=== PATIENT | female | born 1995 | race Caucasian/White ===

== ENCOUNTER → 2020-07-27 | Outpatient (REF) | payer OTHER ==
[2020-07-27 16:20] LABS: HEMOGLOBIN A1c 6.3 %
[2020-07-27 16:30] LABS: FREE T4 1.11 NG/DL (0.76-1.46); THYROID STIMULATING HORMONE 1.15 uIU/ML (0.358-3.740)
== END ==
LOC: M PLALAB 14:14
PROVIDERS: ATTEND Advanced Practice Midwife
DX: O24.319 Unspecified pre-existing diabetes mellitus in pregnancy, unspecified trimester (principal)

== ENCOUNTER → 2020-08-10 | Outpatient (REF) | payer OTHER | LOC: M PLALAB 16:59 | PROVIDERS: ATTEND Obstetrics & Gynecology | DX: Z3A.30 30 weeks gestation of pregnancy (principal) ==

== ENCOUNTER → 2020-08-11 | Outpatient (CLI) | payer OTHER ==
--- NOTE | 2020-08-11 09:17 | REP ---
INDICATION: DIABETES,GROWTH,BPP COMPARISON: None. TECHNIQUE: Transabdominal obstetrical ultrasound with color Doppler evaluation. FINDINGS: Examination demonstrates a single live intrauterine in cephalic presentation. motion is identified by technologist. Placenta is noted posterior and grade 1 without evidence for placenta previa or abruption. Amniotic fluid volume is normal. Cervix measures 3.5 cm in length and appears closed.. Gestational age by LMP 30 weeks 3 days with NOREEN 10/17/2020. Gestational age by current measurements 31 weeks 1 day with NOREEN 10/12/2020. FHR equals 147 beats per minute. BPD: 8.0 cm at 32 weeks 0 days HC: 28.8 cm at 31 weeks 4 days AC: 27.7 cm at 31 weeks 5 days FL: 5.8 cm at 30 weeks 1 day HL: 5.2 cm at 30 weeks 2 days HC/AC: 1.04 Estimated weight 1737 grams (68thpercentile). JCARLOS: 15.7 cm Biophysical profile score: 8/8 Umbilical artery SD ratio: 2.65 (1.93-4.05) IMPRESSION: Single live advanced gestation in cephalic presentation demonstrating appropriate estimated weight. Amniotic fluid volume and biophysical profile score are normal. <Electronically signed by Kyler Bailey > 08/11/20 [id number]
== END ==
LOC: EDUNIT# 08:00 → M WHC 08:03
PROVIDERS: ATTEND Advanced Practice Midwife
DX: O24.313 Unspecified pre-existing diabetes mellitus in pregnancy, third trimester (principal); Z3A.31 31 weeks gestation of pregnancy

== ENCOUNTER → 2020-08-11 | Outpatient (CLI) | payer OTHER ==
[~2020-08-11] MED LIST: ADME100I SC; INSUDET SC; LEVO125T4 PO; METF500T13 PO; PRENTAB53 PO
[2020-08-11 14:34] LABS: ALT/SGPT 24 U/L (12-78); BILIRUBIN,TOTAL 0.2 MG/DL (0.2-1.0); GLOMERULAR FILTRATION RATE > 60.0 (>60); LDH LACTATE DEHYDROGENASE 118 U/L (84-246); URIC ACID 4.2 MG/DL (2.6-6.0)
[2020-08-11 14:58] LABS: CREATININE,RANDOM URINE 71.2 MG/DL; TOTAL PROTEIN,RANDOM URINE 26.6 MG/DL (0.0-12.0)
[2020-08-11 15:54] LABS: HEMATOCRIT 33.3 % (36.0-47.0); HEMOGLOBIN 10.8 g/dl (12.0-15.5); MEAN CORPUSCULAR HEMOGLOBIN 27.8 pg (27.0-33.0); MEAN CORPUSCULAR HGB CONC 32.4 g/dl (32.0-36.5); MEAN CORPUSCULAR VOLUME 85.6 fl (80.0-96.0); PLATELET COUNT, AUTOMATED 311 10^3/uL (150-450); RED BLOOD COUNT 3.89 10^6/uL (4.00-5.40); WHITE BLOOD COUNT 10.1 10^3/uL (4.0-10.0)
== END ==
LOC: M WHC 09:36
PROVIDERS: ATTEND Obstetrics & Gynecology
DX: O24.313 Unspecified pre-existing diabetes mellitus in pregnancy, third trimester (principal); Z3A.30 30 weeks gestation of pregnancy
CPT/HCPCS: 76815; 76818; 82247; 82565; 82570; 83615; 84156; 84450; 84460; 84550; 85027; 86850; 86901; 87340; G0463; J2790

== ENCOUNTER → 2020-08-18 | Outpatient (CLI) | payer OTHER ==
--- NOTE | 2020-08-18 10:19 | REP ---
INDICATION: BPP/GROWTH/DIABETES COMPARISON: None. TECHNIQUE: Transabdominal obstetrical ultrasound with color Doppler evaluation. FINDINGS: Examination demonstrates a single live intrauterine in cephalic presentation. motion is identified by technologist. Placenta is noted posterior and grade 1 without evidence for placenta previa or abruption. Amniotic fluid volume is normal. Cervix measures 3.3 cm in length and appears closed.. Gestational age by LMP and 1st ultrasound 31 weeks 3 days with NOREEN 10/17/2020. FHR equals 128 beats per minute. JCARLOS: 13.3 cm (8.7-24.0) Biophysical profile score: 8/8 Umbilical artery 1 SD ratio: 3.70 (1.87-3.93) Umbilical artery 2 SD ratio: 3.29 (1.87-3.93) IMPRESSION: Single live intrauterine in cephalic presentation. Amniotic fluid index and biophysical profile score normal. <Electronically signed by Kyler Bailey > 08/18/20 [id number]
== END ==
LOC: M WHC 09:33
PROVIDERS: ATTEND Obstetrics & Gynecology
DX: Z36.89 Encounter for other specified antenatal screening (principal); O24.319 Unspecified pre-existing diabetes mellitus in pregnancy, unspecified trimester; Z3A.31 31 weeks gestation of pregnancy

== ENCOUNTER → 2020-08-20 | Outpatient (CLI) | payer OTHER ==
--- NOTE | 2020-08-20 18:03 | REP ---
INDICATION: DIABETES,BPP. COMPARISON: 08/18/2020. TECHNIQUE: Multiple sonographic images of the gravid uterus. FINDINGS: There is a single intrauterine gestation. The technologist did not document position, however, upon review of the images the fetus appears to be in a cephalic presentation. The placenta is posterior with grade 1 maturity. There is no placenta previa. The umbilical cord inserts into the placenta centrally. There is a three-vessel cord. heart rate is 142 beats per minute. Amniotic fluid index is 10.7. Normal is 8.7-24.1. Biophysical profile: breathing 2 tone 2 movement 2 Amniotic fluid volume 2 Total biophysical score: 8/8 Umbilical artery Doppler assessment: Umbilical artery 1: PSV 25.2 centimeters/second EDV 8.5 centimeters/second S/D 2.8 (1.86-3.9 close) RI 0.66 (0.50-0.75) Umbilical artery 2: PSV 25.8 centimeters/second EDV 8.0 centimeters/second S/D 3.23 RI 0.69. IMPRESSION: biophysical profile as discussed above. <Electronically signed by Bijan Lamar > 08/20/20 [id number]
== END ==
LOC: M WHC 09:46
PROVIDERS: ATTEND Obstetrics & Gynecology
DX: O99.213 Obesity complicating pregnancy, third trimester (principal); O24.319 Unspecified pre-existing diabetes mellitus in pregnancy, unspecified trimester

== ENCOUNTER → 2020-08-27 | Outpatient (CLI) | payer OTHER ==
--- NOTE | 2020-08-27 16:12 | REP ---
INDICATION: BPP. Limited study. Biophysical profile. COMPARISON: Comparison study August 20, 2020. TECHNIQUE: Limited transabdominal obstetric sonography. FINDINGS: Scanning through the gravid uterus demonstrates a viable single intrauterine gestation in a cephalic lie. The placenta is posterior grade 2 without evidence of placenta previa. Amniotic fluid is subjectively normal. CJARLOS is normal at 15.5 cm. Biophysical profile score is 8 out of a possible 8. SD ratio in the umbilical cord artery by Doppler is normal at 2.73. Closed cervical length is view transabdominally and measured at 3.8 cm.. IMPRESSION: Limited Ob sonography as above. <Electronically signed by Eugene Cook > 08/27/20 [id number]
== END ==
LOC: M WHC 11:06
PROVIDERS: ATTEND Obstetrics & Gynecology
DX: O24.319 Unspecified pre-existing diabetes mellitus in pregnancy, unspecified trimester (principal); O99.213 Obesity complicating pregnancy, third trimester; Z3A.00 Weeks of gestation of pregnancy not specified

== ENCOUNTER → 2020-09-02 | Outpatient (CLI) | payer OTHER ==
--- NOTE | 2020-09-07 11:01 | REP ---
INDICATION: BPP/GROWTH COMPARISON: 08/27/2020 TECHNIQUE: Transabdominal obstetrical ultrasound with color Doppler evaluation. FINDINGS: Examination demonstrates a single live intrauterine in cephalic presentation. motion is identified by technologist. Placenta is noted posterior and grade 2 without evidence for placenta previa or abruption. Amniotic fluid volume is normal. Cervix measures 3.9 cm in length and appears closed.. Gestational age by LMP and 1st U/S 33 weeks 4 days with NOREEN 10/17/2020. Gestational age by current measurements 34 weeks 0 days with NOREEN 10/14/2020. FHR equals 150 beats per minute. JCARLOS: 14.0 cm Biophysical profile score: 8/8 Estimated weight by current measurements 2496 g (76 percentile) IMPRESSION: Single live intrauterine in cephalic presentation demonstrating appropriate estimated weight. Amniotic fluid index and biophysical profile score are normal. <Electronically signed by Kyler Bailey > 09/07/20 [id number]
== END ==
LOC: M WHC 14:25
PROVIDERS: ATTEND Obstetrics & Gynecology
DX: Z36.2 Encounter for other antenatal screening follow-up (principal); O24.319 Unspecified pre-existing diabetes mellitus in pregnancy, unspecified trimester; Z3A.34 34 weeks gestation of pregnancy

== ENCOUNTER 2020-09-04 13:52 | Outpatient (CLI) | payer OTHER ==
[~2020-09-04] VITALS: Ht 157.5 cm; Wt 114.3 kg
[2020-09-04] MEDS ORDERED: LEVO125T4 PO (14:26)
[2020-09-04] MEDS ORDERED: PRENTAB53 PO (14:26)
[2020-09-04] MEDS ORDERED: ADME100I SC (14:26)
[2020-09-04] MEDS ORDERED: METF500T13 PO (14:26)
[2020-09-04] MEDS ORDERED: INSUDET SC (14:26)
--- NOTE | 2020-09-04 15:32 | IPNPDOC ---
Obstetrical Progress Note Date of Service Sep 04, 2020 Subjective 24yo at 33+6 weeks EGA. Presents for a labor check. Reports vaginal/pelvic/pubic/low back pain discomfort. Patient having difficulty describing location and nature of her discomfort. Denies vulvovaginal lesions/rash. She denies frequent, painful uterine contractions. No loss of fluid or vaginal bleeding. Reports regular, frequent movement. ROS: No COX, visual changes, RUQ pain, sob, cp, n/v/f/c. 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 Cervix closed, no bleeding. SVE: 0-1 cm, 25 %, -3, cephalic, intact, small amount of bloody show; minimal pipe changer several hours. EFM: Cat I / Reactive [place]: contraction pattern not present US,anne: cephalic, normal AFV, MVP 6cm A/P: 24 yo at 33+6 weeks EGA. Latent labor; no evidence of infection, active labor or PPROM. Discomfort may be related to baby's positioning/movement. Reassuring maternal and status. -Routine third trimester precautions given. -Follow up in office as scheduled. Andres Young DO FACOG. JULIO YOUNG DO Sep 04, 2020 15:32
== END 2020-09-04 15:30 | disposition home or self-care (01) ==
LOC: M LDO 13:52
PROVIDERS: ATTEND Obstetrics & Gynecology
DX: O26.893 Other specified pregnancy related conditions, third trimester (principal); R10.2 Pelvic and perineal pain; M54.5 Low back pain; Z3A.33 33 weeks gestation of pregnancy; O24.113 Pre-existing type 2 diabetes mellitus, in pregnancy, third trimester; O14.03 Mild to moderate pre-eclampsia, third trimester; O99.213 Obesity complicating pregnancy, third trimester; E66.9 Obesity, unspecified; O99.283 Endocrine, nutritional and metabolic diseases complicating pregnancy, third trimester; E03.9 Hypothyroidism, unspecified; Z68.42 Body mass index [BMI] 45.0-49.9, adult; Z91.030 Bee allergy status
CPT/HCPCS: 59025; 76815; G0378; G0463

== ENCOUNTER → 2020-09-10 | Outpatient (CLI) | payer OTHER ==
--- NOTE | 2020-09-10 13:57 | REP ---
INDICATION: DIABETES,BPP. COMPARISON: 09/02/2020. TECHNIQUE: Multiple sonographic images of the gravid uterus for growth and biophysical profile. FINDINGS: There is a single intrauterine gestation in a cephalic presentation. The placenta is posterior with grade 2 maturity. No mention of whether not there is a previa is indicated on the work sheet, however, no placenta previa was identified on prior studies. The lower uterine segment is difficult to visualize on the images presented with the study. right heart rate is 139 beats per minute. Amniotic fluid volume is 15.8. Normal is 8.0-24.9. Gestational age by the 1st ultrasound this gestational is 34 weeks 5 days with an NOREEN of 10/17/2020. heart rate is 139 beats per minute. Biophysical profile: Breathing 2 Tone 2 Movement 2 AFV 2 Total 01/09 Umbilical artery Doppler evaluation: Umbilical artery 1: PSV 49.7 cm/S EDV 18.0 cm/S SD 2.76 (1.69-3.62) RA 0.64 (0.46 x 0.72) Umbilical artery 2: PSV 33.1 cm/S EDV 10.7 cm/S SD 3.09 RI 0.68 IMPRESSION: biophysical profile as discussed above. <Electronically signed by Bijan Lamar > 09/10/20 [id number]
== END ==
LOC: M WHC 10:55
PROVIDERS: ATTEND Obstetrics & Gynecology
DX: O24.313 Unspecified pre-existing diabetes mellitus in pregnancy, third trimester (principal); Z3A.34 34 weeks gestation of pregnancy

== ENCOUNTER → 2020-09-13 | Outpatient (REF) | payer OTHER ==
[~2020-09-13] MED LIST changes: +CHLO25TA PO; +IBUP80TA PO; +LABE100T4 PO; +NIFE1TAB51 PO; +OXYC1TAB23 PO
[2020-09-13 18:26] LABS: HEMOGLOBIN 11.1 g/dl (12.0-15.5); MEAN CORPUSCULAR HEMOGLOBIN 26.9 pg (27.0-33.0); MEAN CORPUSCULAR HGB CONC 31.7 g/dl (32.0-36.5); MEAN CORPUSCULAR VOLUME 84.7 fl (80.0-96.0); PLATELET COUNT, AUTOMATED 261 10^3/uL (150-450); RED BLOOD COUNT 4.13 10^6/uL (4.00-5.40)
[2020-09-13 18:47] LABS: ALBUMIN 2.4 GM/DL (3.2-5.2); ALT/SGPT 22 U/L (12-78); BILIRUBIN,TOTAL 0.2 MG/DL (0.2-1.0); BLOOD UREA NITROGEN 11 MG/DL (7-18); CALCIUM LEVEL 9.4 MG/DL (8.5-10.1); CARBON DIOXIDE LEVEL 25 MEQ/L (21-32); CHLORIDE LEVEL 108 MEQ/L (98-107); GLOMERULAR FILTRATION RATE > 60.0 (>60); GLUCOSE, FASTING 80 MG/DL (70-100); POTASSIUM SERUM 4.4 MEQ/L (3.5-5.1); SODIUM LEVEL 141 MEQ/L (136-145); TOTAL PROTEIN 6.3 GM/DL (6.4-8.2)
[2020-09-13 18:49] LABS: CREATININE,RANDOM URINE 81.4 MG/DL; TOTAL PROTEIN,RANDOM URINE 76.1 MG/DL (0.0-12.0)
== END ==
LOC: M PLALAB 14:38
PROVIDERS: ATTEND Obstetrics & Gynecology
DX: Z34.93 Encounter for supervision of normal pregnancy, unspecified, third trimester (principal); Z3A.35 35 weeks gestation of pregnancy
CPT/HCPCS: 36415; 59426; 80053; 82570; 84156; 85027; 87081; 87186; G0463

== ENCOUNTER → 2020-09-17 | Outpatient (CLI) | payer OTHER ==
[~2020-09-17] MED LIST changes: -CHLO25TA PO; -IBUP80TA PO; -LABE100T4 PO; -NIFE1TAB51 PO; -OXYC1TAB23 PO
--- NOTE | 2020-09-17 13:25 | REP ---
INDICATION: BPP/DIABETES. COMPARISON: 09/10/2020 TECHNIQUE: Transabdominal FINDINGS: Multiple ultrasonographic images of the gravid uterus shows a single living intrauterine gestation in the cephalic presentation. Doppler interrogation of the heart shows a heart rate of 149 beats per minute. The subjective amniotic fluid volume is within normal limits. The calculated amniotic fluid index is 11.0 within expected range 7.8-24.9. the placenta is posterior. Doppler interrogation of the umbilical artery shows an AB ratio of 2.92. This is within the normal range. Secondary to the low position of the head inaccurate cervical length measurement could not be obtained. biophysical profile scores 2 for breathing, 2 for tone, 2 for movement, and 2 for amniotic fluid volume giving a sum total of 8/8. IMPRESSION: Limited OB ultrasound as described above. <Electronically signed by Jason Miller > 09/17/20 [id number]
== END ==
LOC: M WHC 12:38
PROVIDERS: ATTEND Obstetrics & Gynecology
DX: O24.313 Unspecified pre-existing diabetes mellitus in pregnancy, third trimester (principal); Z3A.35 35 weeks gestation of pregnancy

== ENCOUNTER 2020-09-21 10:48 | Inpatient (IN) | payer OTHER ==
[2020-09-21] VITALS (40 sets, daily range): BP systolic 94–209; BP diastolic 52–123
[~2020-09-21] VITALS: Ht 157.5 cm; Wt 117.5 kg
[2020-09-21] MEDS ORDERED: NIFEdipine 10 MG CAP PO STA (11:38)
[2020-09-21] MEDS ORDERED: LR 1,000 ML IV SCH ×2 (11:40→18:20)
[2020-09-21] MEDS ORDERED: CALCIUM GLUCONATE 1,000 MG in D5W MINI-BAG PLUS 100 ML IV PRN (11:40)
[2020-09-21] MEDS ORDERED: MAG Sulf (L&D) 4 GM/100 ML 4 GM in IV 1 EA IV ONE (11:40)
[2020-09-21] MEDS ORDERED: MAGNESIUM *L&D* 4GM/100ML BAG (40MG/ML) As Ordered ONE (11:49)
[2020-09-21] MEDS ORDERED: MAGNESIUM SULFATE 4% INJ 20GM/500ML (40MG/ML) As Ordered ONE (11:50)
[2020-09-21] MEDS ORDERED: LABETALOL 100MG/20ML VIAL IV STA ×2 (12:17→22:02)
[2020-09-21 12:25] LABS: HEMATOCRIT 37.9 % (36.0-47.0); HEMOGLOBIN 12.2 g/dl (12.0-15.5); MEAN CORPUSCULAR HEMOGLOBIN 27.4 pg (27.0-33.0); MEAN CORPUSCULAR HGB CONC 32.2 g/dl (32.0-36.5); PLATELET COUNT, AUTOMATED 240 10^3/uL (150-450); RED BLOOD COUNT 4.46 10^6/uL (4.00-5.40); WHITE BLOOD COUNT 10.6 10^3/uL (4.0-10.0)
[2020-09-21] MEDS: MAG Sulf (OBGYN) 20GM/500ML 20,000 MG in IV 1 EA IV SCH ×2 (12:41→23:40)
[2020-09-21 12:47] LABS: ALT/SGPT 29 U/L (12-78); BILIRUBIN,TOTAL 0.2 MG/DL (0.2-1.0); CREATININE FOR GFR 0.58 MG/DL (0.55-1.30); GLOMERULAR FILTRATION RATE > 60.0 (>60); LDH LACTATE DEHYDROGENASE 202 U/L (84-246); URIC ACID 5.1 MG/DL (2.6-6.0)
[2020-09-21 12:53] LABS: CREATININE,RANDOM URINE 52.4 MG/DL; TOTAL PROTEIN,RANDOM URINE 448.7 MG/DL (0.0-12.0)
--- NOTE | 2020-09-21 13:47 | HPEPDOC ---
Obstetrical History & Physical General Date of Admission Sep 21, 2020 at 11:38 History of Present Illness 24-year-old at 36+2 weeks gestation. Presents from the office after exhibiting severe range blood pressures and reporting to be symptomatic with a severe headache. She denies vaginal bleeding, loss of fluid or painful, frequent uterine contractions. She reports regular movement. She denies visual changes, right upper quadrant pain, shortness of breath or chest pain. course: 1. Pregestational diabetic, insulin dependent. Current regimen: AM 24U Admelog , 1000mg Metformin, 80U Levemir. Lunch 24U Admelog. PM 28U Admelog, 1000mg Metformin, 100U Levemir. 2. Pre-eclampsia with severe features. 3. 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 Past Medical History Allergies Coded Allergies: bee venom protein (honey bee) (Verified Adverse Reaction, Severe, "THROAT CLOSES", 09/04/20) Medications Scheduled Levothyroxine Sodium (Levothyroxine Sodium) 125 Mcg Tablet, 125 MCG PO DAILY Metformin HCl (Metformin HCl) 500 Mg Tablet, 1,000 MG PO BID Vit,Calc76/Iron/Folic (Prenatabs Rx Tablet) 1 Each Tablet, 1 TAB PO DAILY Miscellaneous Medications Insulin Detemir (Levemir) 100 Unit/1 Ml Vial, 86 UNITS SC Insulin Detemir (Levemir) 100 Unit/1 Ml Vial, 110 UNITS SC Insulin Lispro (Admelog) 100 Unit/1 Ml Vial, 28 UNIT SC Insulin Lispro (Admelog) 100 Unit/1 Ml Vial, 28 UNIT SC Insulin Lispro (Admelog) 100 Unit/1 Ml Vial, 30 UNIT SC Physical Examination Physical Examination GENERAL: Alert and oriented times three, however, she appears lethargic ABDOMEN: Gravid and non-tender to touch. FETUS: Is vertex (VTX) by sterile vaginal examination (SVE), fetus is vertex (VTX) by Senthil. HEART RATE: Regular rate and rhythm. LUNGS: Clear to auscultation (CTA). EXTREMITIES: No edema. No clonus. SVE: deferred EFM: Cat I [place]: no contractions Vital Signs/I&O Vital Signs Date Time Temp Pulse Resp B/P (MAP) Pulse Ox O2 Delivery O2 Flow Rate FiO2 09/21/20 12:34 98.0 106 18 117/66 (83) 09/21/20 11:10 99 Room Air Laboratory Data 24H LABS Laboratory Tests 2 09/21/20 11:28: Bedside Glucose (Misc Panel) 62L 09/21/20 12:00: Nucleated Red Blood Cells % (auto) 0.2H, Urine Random Creatinine 52.4, Urine Random Total Protein 448.7H, Glomerular Filtration Rate > 60.0, Uric Acid 5.1, Total Bilirubin 0.2, Aspartate Amino Transf (AST/SGOT) 18, Alanine Aminotransferase (ALT/SGPT) 29, Lactate Dehydrogenase 202 09/21/20 12:52: Serology Scanned Report Hepatitis B Testing CBC/BMP Laboratory Tests 09/21/20 12:00 Assessment/Plan Assessment 24yo G1 at 36+2 weeks with pre-eclampsia and severe features; remote from delivery. Comorbidities: IDDM (pregestational), obesity, hypothyroidism. status / antepartum testing reassuring thus far. Plan Admit and orient. Lumber Cutter and consent. Diet: NPO Recommend expediting delivery, offered PLTCS and she has agreed to proceed in this fashion. Anesthesia and NICU notified. Preparations for the OR being made. UJLIO FRITZ DO Sep 21, 2020 13:47
[2020-09-21] MEDS ORDERED: PHENYLephrine 500MCG 5ML (100MCG/ML) SYRINGE As Ordered ONE ×2 (14:40→17:23)
[2020-09-21] MEDS ORDERED: MORPHINE PRES-FREE INJ 10 MG/10 ML VIAL (J2274) As Ordered ONE (14:40)
[2020-09-21] MEDS ORDERED: OXYTOCIN 30 UNITS IN 0.9% NaCl 500ML IV BAG (J2590) As Ordered ONE (14:40)
[2020-09-21] MEDS ORDERED: METOCLOPRAMIDE INJ 10MG/2ML VIAL (J2765 PER 1) As Ordered ONE (14:40)
[2020-09-21] MEDS ORDERED: ePHEDrine SULFATE 25 MG/5 ML(5MG/ML) SYRINGE As Ordered ONE (14:40)
[2020-09-21] MEDS ORDERED: ONDANSETRON 4MG/2ML VIAL As Ordered ONE (14:40)
[2020-09-21] MEDS ORDERED: DEXTROSE 50% 50 ML SYRINGE As Ordered ONE (14:48)
[2020-09-21] MEDS ORDERED: ceFAZolin SOD 3 GM IV Place Holder IV ONE (14:50)
[2020-09-21] MEDS: BICITRA 30ML SOLN UDC PO ONE ×2 (14:51→16:47)
[2020-09-21] MEDS ORDERED: DEXTROSE 50% 50 ML SYRINGE IV STA ×2 (14:56→16:16)
[2020-09-21] MEDS ORDERED: ceFAZolin SOD 2 GM in IV 1 EA IV ONE (15:05)
[2020-09-21] MEDS ORDERED: ceFAZolin SOD 1 GM in D5W MINI-BAG PLUS 50 ML IV ONE (15:05)
[2020-09-21] MEDS ORDERED: D5W/0.9% SODIUM CHLORIDE 1,000 ML IV SCH ×2 (15:50→23:30)
[2020-09-21] MEDS ORDERED: KETOROLAC 60MG 2ML VIAL As Ordered ONE (16:38)
[2020-09-21] MEDS ORDERED: dexameTHASONE 4 MG/ML 1ML VIAL (J1100 PER 1MG) As Ordered ONE (16:38)
[2020-09-21 17:48] LABS: CORD GAS ABE V -4.8; CORD GAS HCO3 V 21.4 MEQ/L; CORD GAS O2 SAT V 62.3 %; CORD GAS PCO2 V 43.8 mmHg; CORD GAS PH V 7.307 UNITS; CORD GAS PO2 V 27.8 mmHg; CORD GAS SBC V 19.7 MEQ/L; CORD GAS TCO2 V 22.8 MEQ/L
[2020-09-21] MEDS ORDERED: SIMETHICONE 80MG CHEW TAB PO PRN (18:20)
[2020-09-21] MEDS ORDERED: PERCOCET 5MG/325MG TAB PO PRN ×2 (18:20)
[2020-09-21] MEDS ORDERED: OXYTOCIN DRIP 30 UNITS in IV 1 EA IV SCH (18:20)
[2020-09-21] MEDS ORDERED: MEASLES,MUMPS,RUBELLA VACCINE INJ (MMR-II) (90707) SC SCH (18:20)
[2020-09-21] MEDS ORDERED: ONDANSETRON 4 MG TAB PO PRN (18:20)
[2020-09-21] MEDS ORDERED: RHOGAM 300 MCG (1500 IU) INJ (J2790) IM SCH (18:20)
[2020-09-21] MEDS ORDERED: ACETAMINOPHEN 500 MG TAB PO PRN (18:20)
[2020-09-21] MEDS ORDERED: DEXTROSE 50% 50 ML SYRINGE IV PRN (18:25)
[2020-09-21] MEDS ORDERED: GLUCAGON INJ 1MG VIAL SC PRN (18:25)
[2020-09-21] MEDS ORDERED: GLUCOSE 4GM CHEW TABLET PO PRN (18:25)
[2020-09-21] MEDS ORDERED: METOCLOPRAMIDE INJ 10MG/2ML VIAL (J2765 PER 1) IV PRN (18:30)
[2020-09-21] MEDS ORDERED: ONDANSETRON 4MG/2ML VIAL IV PRN ×2 (18:30)
[2020-09-21] MEDS ORDERED: oxyCODONE 5MG TAB PO PRN (18:30)
[2020-09-21] MEDS ORDERED: fentaNYL 100 MCG/2 ML INJECTION (J3010) IV PRN (18:30)
[2020-09-21] MEDS ORDERED: HYDROMORPHONE HCL 0.5 MG/ 0.5 ML SYRINGE (J1170 PER 1) IV PRN (18:30)
[2020-09-21] MEDS ORDERED: MEPERIDINE INJ 25 MG/ML VIAL (J2175) IV PRN (18:30)
[2020-09-21] MEDS ORDERED: NALOXONE INJ 0.4MG/1ML VIAL (J2310 PER 1MG) IV PRN ×2 (18:30)
[2020-09-21] MEDS ORDERED: NALBUPHINE HCL 10 MG/ML AMP (J2300) IV PRN ×2 (18:30)
[2020-09-21] MEDS ORDERED: diphenhydrAMINE 50MG/ML VIAL (J1200) IV PRN ×2 (18:30)
--- NOTE | 2020-09-21 18:30 | ROOPDOC ---
[facility] Report Of Operation Report of Operation DATE OF PROCEDURE: 09/21/2020 PREPROCEDURE DIAGNOSES:. 36+2 weeks gestation, preeclampsia was severe features, insulin-dependent diabetes mellitus, obesity, hypothyroidism (remote from delivery) POSTPROCEDURE DIAGNOSES: Same PROCEDURE: Primary low transverse section SURGEON: Spencer Young DO FACOG CENTRAL SUPPLY ASSISTANT: MD Amita FACOG (Essential role in retraction, extraction, and closure of all tissue layers) ANESTHESIA: Spinal ESTIMATED BLOOD LOSS: 500 mL. IV FLUIDS: 300 mL LR URINE OUTPUT: 50 mL COMPLICATIONS: None. PREOPERATIVE ANTIBIOTICS: Ancef 3g IV x 1 COMPLICATIONS: none DATA: Apgars 9 and 9. Birthweight 3100 g, 6 lbs 13 oz. SPECIMENS: none PRIMARY INDICATION FOR : Pre-eclampsia with severe features, remote from delivery DESCRIPTION OF PROCEDURE: The patient was counseled on the risks, benefits, indications and alternatives of the procedure. Informed consent was obtained. She was taken to the operating room with IV running and placed on the operating table in the dorsal supine position with a leftward tilt. Regional anesthesia was found to be adequate. Sequential compression devices were placed on the lower extremities. A Garcia c atheter was placed under sterile conditions. She was prepared and draped in normal sterile fashion. A time out was performed per protocol. Regional anesthesia was again found to be adequate. A Pfannenstiel skin incision was made with the 10 blade. The 10 blade was used to dissect down to the level of the rectus sheath fascia. The rectus sheath pressure was incised midline and this was extended bilaterally with Steiner scissors , and manual stretch. The rectus muscle bellies were dissected off the rectus sheath fascia superiorly and inferiorly using both sharp and blunt dissection. The midline was identified. The peritoneum was identified and entered digitally. The peritoneal opening was extended with manual stretch. The Mobius retractor was placed. The vesicouterine peritoneum was dissected with Metzenbaum scissors to create the bladder flap. A low transverse uterine incision was made with the 10 blade. This was extended with manual stretch. The amniotic sac was punctured, and clear fluid was noted. The baby delivered through the hysterotomy without difficulty. The cord was doubly clamped and cut, and the baby was handed off to awaiting care. data shown above. The placenta was removed manually. The intrauterine cavity was cleared of all clot and debris. The hysterotomy was closed with 0 Vicryl in running locked fashion. This was reinforced with a second imbricating layer using 0 Vicryl in running fashion. Excellent hemostasis of the hysterotomy was noted. The pelvis was irrigated and the fluid suctioned. The Mobius retractor was removed. The peritoneum was closed with 3-0 Vicryl running fashion. The rectus muscle bellies were reapproximated with interrupted stitches using 3-0 Vicryl. The rectus muscles bellies were hemostatic. The rectus sheath fascia was closed with 0 Vicryl running fashion. The subcutaneous layer was irrigated and the fluid suctioned. Small bleeding vessels were cauterized with Bovie. Excellent hemostasis was noted. The subcutaneous layer was reapproximated with 3-0 Vicryl running fashion. Skin was closed with 3-0 Monocryl in subcuticular fashion. An Optifoam bandage was placed over the closed incision. Sponge, needle and instrument counts were correct per protocol throughout the procedure. The patient tolerated the entire procedure very well. She was transferred to the PACU in stable condition. DO EMMIE Hong JONATHAN R. DO Sep 21, 2020 18:30
[2020-09-21] MEDS: DOCUSATE SODIUM 100MG CAPSULE PO SCH (21:00)
[2020-09-21] MEDS: LABETALOL 200 MG TAB PO SCH (21:14)
[2020-09-21] MEDS: KETOROLAC 30 MG/ML 1ML VIAL IV SCH (23:40)
[2020-09-22] VITALS (24 sets, daily range): BP systolic 111–157; BP diastolic 55–92
[2020-09-22] MEDS: KETOROLAC 30 MG/ML 1ML VIAL IV SCH ×2 (06:07→12:00)
[2020-09-22] MEDS: HumaLOG INSULIN (NovoLOG) PER UNIT SC SCH ×5 (07:04→20:30)
--- NOTE | 2020-09-22 07:07 | IPNPDOC ---
Progress Note Date of Service: Sep 22, 2020 Day#: 1 Progress Note POD#1 S/p PLTCS. Pre-e w/ severe features, remote from delivery. Receiving mag sulfate. Glycemic control with insulin sliding scale. Antihypertensive: Labetalol 200mg BID. Received Labetalol 20mg IV x 1 since delivery. SUBJECT: Pain well controlled. Tolerating small amounts of PO. Garcia in place. Vaginal bleeding , Lochia decreasing/minimal. Pain is well-controlled. Incision bandage is clean/unsaturated. Denies headache, visual changes, right upper quadrant pain, shortness of breath or chest pain. OBJECTIVE: VITAL SIGNS: Predominantly normotensive this AM/intermittent HTN, afebrile. Alert and oriented times three. H: RRR L: CTA B Abdomen: Fundus firm at U-2. Soft, NTTP. Incision bandage not soaked through See [email or web address] for FSG. ASSESSMENT: Status post uncomplicated PLTCS. Vitals within normal limits, afebrile, hemodynamically stable with no evidence of infection. PLAN: Continue Mag sulfate until at least 24 hours . Continue labetalol and ssi Restart Levothyroxine Coordinate with incising machine operator or med consult to decide on insulin regimen. Routine /postoperative advancement Andres Fritz DO VS, I&O, 24H, Shellie Vital Signs/I&O Vital Signs Date Time Temp Pulse Resp B/P (MAP) Pulse Ox O2 Delivery O2 Flow Rate FiO2 09/22/20 05:02 97 18 115/55 (75) 09/22/20 00:59 98.4 09/21/20 20:42 98 Room Air I&O- Last 24 Hours up to 6 AM 09/22/20 06:00 Intake Total 2743 ml Output Total 3665 ml Balance -922 ml Laboratory Data 24H LABS Laboratory Tests 2 09/21/20 11:28: Bedside Glucose (Misc Panel) 62L 09/21/20 12:00: Nucleated Red Blood Cells % (auto) 0.2H, Urine Random Creatinine 52.4, Urine Random Total Protein 448.7H, Glomerular Filtration Rate > 60.0, Uric Acid 5.1, Total Bilirubin 0.2, Aspartate Amino Transf (AST/SGOT) 18, Alanine Aminotransferase (ALT/SGPT) 29, Lactate Dehydrogenase 202, Syphilis Serology NONREACTIVE 09/21/20 12:52: Serology Scanned Report Hepatitis B Testing 09/21/20 14:47: Bedside Glucose (Misc Panel) 29*L 09/21/20 14:54: Bedside Glucose (Misc Panel) 182H 09/21/20 15:17: Bedside Glucose (Misc Panel) 84 09/21/20 15:44: Bedside Glucose (Misc Panel) 66L 09/21/20 16:11: Bedside Glucose (Misc Panel) 52L 09/21/20 16:44: Bedside Glucose (Misc Panel) 132H 09/21/20 17:17: Bedside Glucose (Misc Panel) 121H 09/21/20 17:37: Cord Venous Blood pH 7.307, Cord Venous Blood PCO2 43.8, Cord Venous Blood PO2 27.8, Cord Venous Blood HCO3 21.4, Cord Venous Blood Total CO2 22.8, Cord Venous Base Excess (Actual) -4.8, Cord Venous Base Excess (Standard) 19.7, Cord Venous Blood Oxygen Saturation 62.3 09/21/20 18:14: Bedside Glucose (Misc Panel) 96 09/21/20 22:17: Bedside Glucose (Misc Panel) 48L 09/21/20 22:42: Bedside Glucose (Misc Panel) 58L 09/21/20 23:07: Bedside Glucose (Misc Panel) 62L 09/22/20 02:38: Bedside Glucose (Misc Panel) 77 09/22/20 06:11: Bedside Glucose (Misc Panel) 172H CBC/BMP Laboratory Tests 09/21/20 12:00 JULIO FRITZ DO Sep 22, 2020 07:07
[2020-09-22] MEDS: NS 1,000 ML IV SCH ×2 (07:10→18:33)
[2020-09-22] MEDS: PRENATAL VITAMINS CHEWABLE TABLET PO SCH (08:46)
[2020-09-22] MEDS: LABETALOL 200 MG TAB PO SCH ×2 (08:47→20:43)
[2020-09-22] MEDS: DOCUSATE SODIUM 100MG CAPSULE PO SCH ×2 (08:47→20:36)
[2020-09-22] MEDS: ENOXAPARIN 60MG/0.6ML SYRINGE (J1650 PER 10MG) SC SCH (09:24)
[2020-09-22] MEDS: MAG Sulf (OBGYN) 20GM/500ML 20,000 MG in IV 1 EA IV SCH ×3 (09:45→18:15)
[2020-09-22] MEDS: LEVOTHYROXINE 125MCG TABLET (0.125MG) PO SCH (13:17)
[2020-09-22] MEDS: IBUPROFEN 800 MG TAB PO SCH (20:37)
[2020-09-23] VITALS (11 sets, daily range): BP systolic 129–180; BP diastolic 66–103
[2020-09-23] MEDS: HumaLOG INSULIN (NovoLOG) PER UNIT SC SCH ×6 (00:30→17:11)
[2020-09-23] MEDS: IBUPROFEN 800 MG TAB PO SCH ×3 (04:39→20:19)
[2020-09-23] MEDS: LEVOTHYROXINE 125MCG TABLET (0.125MG) PO SCH (06:07)
[2020-09-23] MEDS ORDERED: LEVEMIR (INSULIN DETEMIR) 1 UNITS/0.01ML SC SCH (08:00)
[2020-09-23] MEDS: PRENATAL VITAMINS CHEWABLE TABLET PO SCH (08:52)
[2020-09-23] MEDS: DOCUSATE SODIUM 100MG CAPSULE PO SCH ×2 (08:52→20:20)
[2020-09-23] MEDS: metFORMIN (GLUCOPHAGE) 1000 MG TABLET PO SCH ×2 (08:52→17:10)
[2020-09-23] MEDS: LABETALOL 100MG TAB PO SCH ×2 (08:59→20:22)
[2020-09-23] MEDS: NS 1,000 ML IV SCH ×2 (09:30→22:50)
[2020-09-23] MEDS: LEVEMIR (INSULIN DETEMIR) 1 UNITS/0.01ML SC SCH ×2 (09:55→20:15)
[2020-09-23] MEDS: ENOXAPARIN 60MG/0.6ML SYRINGE (J1650 PER 10MG) SC SCH (09:56)
[2020-09-23] MEDS ORDERED: LABETALOL 100MG/20ML VIAL IV STA (10:29)
[2020-09-24 02:00] VITALS: BP 165/80
[2020-09-24] MEDS: IBUPROFEN 800 MG TAB PO SCH ×3 (03:40→19:57)
[2020-09-24] MEDS: LEVOTHYROXINE 125MCG TABLET (0.125MG) PO SCH (05:33)
--- NOTE | 2020-09-24 05:47 | IPNPDOC ---
Progress Note Date of Service: Sep 24, 2020 Day#: 3 Progress Note SUBJECT: Doing well without complaints. Ambulating, voiding and pain is well-c ontrolled. Reports minimal lochia. Doing well without complaints. Ambulating, voiding and pain is well-controlled. Reports minimal lochia. Patient has continued to have intermittent severe range blood pressures. She is status post magnesium sulfate. She has remained asymptomatic. Her labetalol was increased yesterday morning. OBJECTIVE: VITAL SIGNS: Elevated blood pressures with intermittent severe ranges, afebrile. Alert and oriented times three. Abdomen: Fundus firm at U-2. Soft, NTTP. Incision: dressed Ext: neg calf tenderness. ASSESSMENT: /postoperative day #3 status post delivery. Recovering in stable condition. Preeclampsiawell titrate her labetalol Pre-gestational diabetespatient started new insulin regimen as well as a sliding scale per her educational therapist PLAN: 1. Continue routine /postoperative care 2. Discharge plans for tomorrow VS, I&O, 24H, Fishbone Vital Signs/I&O Vital Signs Date Time Temp Pulse Resp B/P (MAP) Pulse Ox O2 Delivery O2 Flow Rate FiO2 09/24/20 02:00 97.8 104 18 165/80 (108) 98 Room Air Laboratory Data 24H LABS Laboratory Tests 2 09/23/20 08:50: Bedside Glucose (Misc Panel) 119H 09/23/20 11:52: Bedside Glucose (Misc Panel) 87 09/23/20 16:53: Bedside Glucose (Misc Panel) 83 09/23/20 21:35: Bedside Glucose (Misc Panel) 91 09/24/20 01:56: Bedside Glucose (Misc Panel) 74 PARIS OQUENDO MD. Sep 24, 2020 05:47
[2020-09-24 06:00] VITALS: BP 161/90
[2020-09-24] MEDS: HumaLOG INSULIN (NovoLOG) PER UNIT SC SCH ×3 (07:30→17:51)
[2020-09-24] MEDS: metFORMIN (GLUCOPHAGE) 1000 MG TABLET PO SCH ×2 (08:11→17:51)
[2020-09-24] MEDS: DOCUSATE SODIUM 100MG CAPSULE PO SCH ×2 (08:11→21:02)
[2020-09-24] MEDS: LABETALOL 100MG TAB PO SCH ×2 (08:12→21:03)
[2020-09-24] MEDS: PRENATAL VITAMINS CHEWABLE TABLET PO SCH (08:12)
[2020-09-24] MEDS: LEVEMIR (INSULIN DETEMIR) 1 UNITS/0.01ML SC SCH ×2 (08:13→19:58)
[2020-09-24] MEDS: ENOXAPARIN 60MG/0.6ML SYRINGE (J1650 PER 10MG) SC SCH (09:47)
[2020-09-24 10:00] VITALS: BP 162/90
[2020-09-24 14:00] VITALS: BP 167/95
[2020-09-24 18:00] VITALS: BP 157/82
[2020-09-24 21:08] VITALS: BP 169/92
[2020-09-25] VITALS (9 sets, daily range): BP systolic 158–194; BP diastolic 87–102
[2020-09-25] MEDS: IBUPROFEN 800 MG TAB PO SCH ×3 (03:45→19:40)
[2020-09-25] MEDS: LEVOTHYROXINE 125MCG TABLET (0.125MG) PO SCH (05:53)
[2020-09-25] MEDS: LABETALOL 100MG TAB PO SCH ×2 (06:07→20:37)
[2020-09-25] MEDS: metFORMIN (GLUCOPHAGE) 1000 MG TABLET PO SCH ×2 (08:48→18:07)
[2020-09-25] MEDS: DOCUSATE SODIUM 100MG CAPSULE PO SCH ×2 (08:48→20:32)
[2020-09-25] MEDS: PRENATAL VITAMINS CHEWABLE TABLET PO SCH (08:48)
[2020-09-25] MEDS: HumaLOG INSULIN (NovoLOG) PER UNIT SC SCH ×3 (08:49→18:07)
[2020-09-25] MEDS: LEVEMIR (INSULIN DETEMIR) 1 UNITS/0.01ML SC SCH ×2 (08:50→19:42)
[2020-09-25] MEDS: ENOXAPARIN 60MG/0.6ML SYRINGE (J1650 PER 10MG) SC SCH (11:11)
[2020-09-25] MEDS: NIFEdipine 10 MG CAP PO SCH ×3 (11:39→20:37)
[2020-09-25] MEDS ORDERED: CHLORTHALIDONE 25 MG TAB PO ONE (19:05)
--- NOTE | 2020-09-25 19:11 | IPNPDOC ---
Progress Note Date of Service: Sep 25, 2020 Day#: 4 Progress Note SUBJECT: No complaints, no headaches OBJECTIVE: VITAL SIGNS: Alert and oriented times three. Breath sounds clear to auscultation. Heart rate: Regular rate and rhythm, no murmurs, rubs or gallops. Abdomen: Fundus firm at U-2. Soft, NTTP. ASSESSMENT: pt is a 24-year-old 1 now Para 1 s/p delivery POD#4 with preeclampsia, persistent BP elevation PLAN: Continue Labetalol 300 mg BID Nifedipine 10 mg IR added today After two doses of Nifedpine, still with unacceptable BP's Add Chlorthalidone 12.5 mg today [facility], [facility] V[facility] Signs/I&O Vital Signs Date Time Temp Pulse Resp B/P (MAP) Pulse Ox O2 Delivery O2 Flow Rate FiO2 09/25/20 18:40 112 194/90 (124) 09/25/20 17:59 99.5 18 99 Room Air Laboratory Data 24H LABS Laboratory Tests 2 09/24/20 20:53: Bedside Glucose (Misc Panel) 105 09/25/20 01:14: Bedside Glucose (Misc Panel) 92 09/25/20 05:56: Bedside Glucose (Misc Panel) 86 YOSVANY WISEMAN MD Sep 25, 2020 19:08
[2020-09-26] VITALS (11 sets, daily range): BP systolic 160–192; BP diastolic 80–104
[2020-09-26] MEDS: IBUPROFEN 800 MG TAB PO SCH ×2 (03:53→12:05)
[2020-09-26] MEDS: LEVOTHYROXINE 125MCG TABLET (0.125MG) PO SCH (05:48)
[2020-09-26] MEDS: NIFEdipine 10 MG CAP PO SCH ×4 (06:37→16:02)
[2020-09-26] MEDS: PRENATAL VITAMINS CHEWABLE TABLET PO SCH (08:10)
[2020-09-26] MEDS: metFORMIN (GLUCOPHAGE) 1000 MG TABLET PO SCH (08:10)
[2020-09-26] MEDS: DOCUSATE SODIUM 100MG CAPSULE PO SCH (08:11)
[2020-09-26] MEDS: LABETALOL 100MG TAB PO SCH ×2 (08:13→16:01)
[2020-09-26] MEDS: ENOXAPARIN 60MG/0.6ML SYRINGE (J1650 PER 10MG) SC SCH (08:13)
[2020-09-26] MEDS: LEVEMIR (INSULIN DETEMIR) 1 UNITS/0.01ML SC SCH (08:14)
[2020-09-26] MEDS: HumaLOG INSULIN (NovoLOG) PER UNIT SC SCH ×2 (08:14→12:04)
[2020-09-26] MEDS ORDERED: CHLORTHALIDONE 25 MG TAB PO SCH (09:00)
[2020-09-26] MEDS ORDERED: IBUP80TA PO (17:16)
[2020-09-26] MEDS ORDERED: LABE100T4 PO ×3 (17:16→18:51)
[2020-09-26] MEDS ORDERED: CHLO25TA PO ×3 (17:16→18:52)
[2020-09-26] MEDS ORDERED: NIFE1TAB51 PO ×3 (17:17→18:53)
[2020-09-26] MEDS ORDERED: OXYC1TAB23 PO (17:22)
--- NOTE | 2020-09-26 17:52 | DS.PDOC ---
Discharge Summary General Date of Admission Sep 21, 2020 at 11:38 Date of Discharge Sep 26, 2020 Discharge Summary PROCEDURES PERFORMED DURING STAY: [None]. ADMITTING DIAGNOSES: 1. 36 2/7 weeks, preeclampsia with severe features. DISCHARGE DIAGNOSES: 1. same. COMPLICATIONS/CHIEF COMPLAINT: High B/P. Labor.. HISTORY OF PRESENT ILLNESS: 24 yo at 36 2/7 weeks presents to the office with headaches.She was noted to have severe range blood pressures. HOSPITAL COURSE: 24 yo at 36 2/7 weeks gestation admitted on 09/21/2020 with severe range blood pressures and a diagnosis of preeclampsia. Due to the severity of the situation, the decision was made to expedite delivery. Patient was offered a primary section. On 09/21/2020. She underwent a primary low transverse section without complication. She was given magnesium sulfate for seizure prophylaxis. Her course was significant for continued elevated blood pressures. She was initially started on labetalol 300 mg twice a day. Blood pressures did not respond. She had additional agents added. She had nifedipine immediate release 20 mg every 4 hours added. She also had chlorthalidone 25 mg daily. Her labetalol was increased to 3 times a day. Her blood pressure showed slow improvement. She was watched for an extended number of days after surgery. She had adequate return of bladder or bowel function. Her blood sugars were well controlled on her usual insulin regimen. Her blood pressures were improved by postop day #5. However, they were not optimal. The decision was made to discharge patient home on a regimen of 3 blood pressure medications. She is to take labetalol, nifedipine ER, and chlorthalidone. She'll follow-up in the office in 1 day for blood pressure check. DISCHARGE MEDICATIONS: Please see below. ALLERGIES: Please see below. PHYSICAL EXAMINATION ON DISCHARGE: VITAL SIGNS: Please see below. GENERAL: nad HEENT: NCAT NECK: WNL CARDIOVASCULAR EXAMINATION: RRR RESPIRATORY EXAMINATION: CTA ABDOMINAL EXAMINATION: dressing c/d/i EXTREMITIES: tr edema NEUROLOGICAL EXAMINATION: CN's II-XII intact LABORATORY DATA: Please see below. ACTIVITY: As tolerated. DIET: regular DISCHARGE PLAN: discharge home DISCHARGE INSTRUCTIONS: 1. take 3 blood pressure medications as ordered 2. follow up in the office in 1 day for a blood pressure check 3. avoid Ibuprofen at this time due to possible effects on blood pressure. ITEMS TO FOLLOWUP ON ON OUTPATIENT: 1. blood pressure evaluation the day after discharge. DISCHARGE CONDITION: Stable. TIME SPENT ON DISCHARGE: Greater than 15 minutes. Vital Signs/I&Os Vital Signs Date Time Temp Pulse Resp B/P (MAP) Pulse Ox O2 Delivery O2 Flow Rate FiO2 09/26/20 16:44 160/100 (120) 09/26/20 14:00 98.8 110 98 Room Air 09/26/20 09:48 14 I&O- Last 24 Hours up to 6 AM 09/26/20 06:00 Intake Total 1150 ml Output Total 2450 ml Balance -1300 ml Discharge Medications Scheduled Chlorthalidone (Chlorthalidone) 25 Mg Tablet, 25 MG PO DAILY Labetalol HCl (Labetalol HCl) 100 Mg Tablet, 300 MG PO TID Levothyroxine Sodium (Levothyroxine Sodium) 125 Mcg Tablet, 125 MCG PO DAILY, (Reported) Metformin HCl (Metformin HCl) 500 Mg Tablet, 1,000 MG PO BID, (Reported) Nifedipine (Nifedipine ER) 60 Mg Tab.er.24, 1 TAB PO DAILY Vit,Calc76/Iron/Folic (Prenatabs Rx Tablet) 1 Each Tablet, 1 TAB PO DAILY, (Reported) Scheduled PRN Oxycodone HCl/Acetaminophen (Oxycodone-Acetaminophen 5-325) 1 Each Tablet, 1 TAB PO TIDP PRN for pain Miscellaneous Medications Insulin Detemir (Levemir) 100 Unit/1 Ml Vial, 86 UNITS SC, (Reported) Insulin Detemir (Levemir) 100 Unit/1 Ml Vial, 110 UNITS SC, (Reported) Insulin Lispro (Admelog) 100 Unit/1 Ml Vial, 28 UNIT SC, (Reported) Insulin Lispro (Admelog) 100 Unit/1 Ml Vial, 28 UNIT SC, (Reported) Insulin Lispro (Admelog) 100 Unit/1 Ml Vial, 30 UNIT SC, (Reported) Allergies Coded Allergies: bee venom protein (honey bee) (Verified Adverse Reaction, Severe, "THROAT CLOSES", 09/04/20) YOSVANY WISEMAN MD Sep 26, 2020 17:52
== END 2020-09-26 18:15 | disposition home or self-care (01) | DRG 773 ==
LOC: M LDO 10:48 → M LDI 11:38 → M OBS 09-22 20:00
PROVIDERS: ADMIT Obstetrics & Gynecology; ATTEND Obstetrics & Gynecology
PROC: 10D00Z1 Extraction of Products of Conception, Low, Open Approach (ICD-10-PCS; principal; 2020-09-21 14:47)
DX: O14.14 Severe pre-eclampsia complicating childbirth (principal); Z37.0 Single live birth; Z3A.36 36 weeks gestation of pregnancy; E03.9 Hypothyroidism, unspecified; O99.284 Endocrine, nutritional and metabolic diseases complicating childbirth; O24.414 Gestational diabetes mellitus in pregnancy, insulin controlled; E66.01 Morbid (severe) obesity due to excess calories; O99.214 Obesity complicating childbirth; Z91.030 Bee allergy status; Z79.899 Other long term (current) drug therapy; Z79.4 Long term (current) use of insulin

== ENCOUNTER → 2021-01-24 | Outpatient (REF) | payer OTHER ==
[~2021-01-24] MED LIST changes: +CHLO25TA PO; +IBUP80TA PO; +LABE100T4 PO; +NIFE1TAB51 PO; +OXYC1TAB23 PO
== END ==
LOC: M SFHCWAGY 12:42
PROVIDERS: ATTEND Obstetrics & Gynecology
DX: Z12.4 Encounter for screening for malignant neoplasm of cervix (principal); N76.0 Acute vaginitis

== ENCOUNTER → 2023-04-06 | Outpatient (CLI) | payer OTHER ==
[~2023-04-06] MED LIST changes: -LABE100T4 PO; +LABE100T6 PO
[2023-04-06 11:14] LABS: BASO # 0.1 10^3/uL (0.0-0.2); EOS # 0.2 10^3/uL (0.0-0.5); EOS % 2.3 % (0.0-3.0); HEMATOCRIT 35.4 % (36.0-47.0); HEMOGLOBIN 10.8 g/dl (12.0-15.5); LYMPH # 2.3 10^3/uL (1.5-5.0); LYMPH % 33.8 % (24.0-44.0); MEAN CORPUSCULAR HEMOGLOBIN 23.9 pg (27.0-33.0); MEAN CORPUSCULAR HGB CONC 30.5 g/dl (32.0-36.5); MEAN CORPUSCULAR VOLUME 78.5 fl (80.0-96.0); MONO # 0.5 10^3/uL (0.0-0.8); NEUTROPHILS # 3.8 10^3/uL (1.5-8.5); NEUTROPHILS % 55.6 % (36.0-66.0); PLATELET COUNT, AUTOMATED 329 10^3/uL (150-450); RED BLOOD COUNT 4.51 10^6/uL (4.00-5.40); WHITE BLOOD COUNT 6.8 10^3/uL (4.0-10.0)
[2023-04-06 11:23] LABS: ALBUMIN 3.8 G/DL (3.2-5.2); ALKALINE PHOSPHATASE 92 U/L (46-116); ALT/SGPT 18 U/L (7.0-40); AST/SGOT < 8 U/L (<34); BILIRUBIN,TOTAL 0.6 MG/DL (0.3-1.2); BLOOD UREA NITROGEN 16 MG/DL (9-23); CALCIUM LEVEL 9.1 MG/DL (8.5-10.1); CARBON DIOXIDE LEVEL 28 MMOL/L (20-31); CHLORIDE LEVEL 105 MMOL/L (98-107); CHOLESTEROL LEVEL 127 MG/DL (<200); CHOLESTEROL RISK RATIO 3.46 (<5); CREATININE FOR GFR 0.56 MG/DL (0.55-1.30); GLOMERULAR FILTRATION RATE > 60.0 (>60); GLUCOSE, FASTING 188 MG/DL (60-100); HDL CHOLESTEROL 36.7 MG/DL (>40); LDL CHOLESTEROL 65.7 MG/DL (<100); NON-HDL-C 90.3 MG/DL; POTASSIUM SERUM 4.5 MMOL/L (3.5-5.1); SODIUM LEVEL 138 MMOL/L (136-145); TOTAL PROTEIN 7.2 G/DL (5.7-8.2); TRIGLYCERIDES LEVEL 123 MG/DL (<150)
[2023-04-06 11:29] LABS: INR 1.08; PROTHROMBIN TIME 13.7 SECONDS (12.5-14.5)
[2023-04-06 11:32] LABS: CREATININE, URINE 82.4 MG/DL; MAU/CREAT RATIO 162.6 MCG/MG (0.0-30.0)
[2023-04-06 11:47] LABS: HEMOGLOBIN A1c 8.4 % (4.0-6.0)
== END ==
LOC: M PLALAB 09:17
PROVIDERS: ATTEND Student in an Organized Health Care Education/Training Program
DX: E11.9 Type 2 diabetes mellitus without complications (principal); Z76.89 Persons encountering health services in other specified circumstances; I10 Essential (primary) hypertension; I25.10 Atherosclerotic heart disease of native coronary artery without angina pectoris

== ENCOUNTER → 2023-12-10 | Outpatient (CLI) | payer OTHER, MEDICAID | LOC: M PLALAB 11:06 | PROVIDERS: ATTEND Student in an Organized Health Care Education/Training Program | DX: E11.59 Type 2 diabetes mellitus with other circulatory complications (principal); I16.0 Hypertensive urgency; R00.0 Tachycardia, unspecified; Z86.2 Personal history of diseases of the blood and blood-forming organs and certain disorders involving the immune mechanism; Z53.9 Procedure and treatment not carried out, unspecified reason ==

== ENCOUNTER → 2023-12-13 | Outpatient (REF) | payer OTHER, MEDICAID | LOC: M SFHCPLAZ 15:05 | PROVIDERS: ATTEND Student in an Organized Health Care Education/Training Program | DX: Z53.9 Procedure and treatment not carried out, unspecified reason (principal) ==

== ENCOUNTER → 2024-06-23 | Outpatient (CLI) | payer OTHER, MEDICAID ==
[2024-06-23 16:55] LABS: BASO # 0.1 10^3/uL (0.0-0.2); BASO % 0.9 % (0.0-1.0); EOS # 0.3 10^3/uL (0.0-0.5); EOS % 3.3 % (0.0-3.0); HEMATOCRIT 38.4 % (36.0-47.0); HEMOGLOBIN 12.2 g/dl (12.0-15.5); LYMPH % 26.7 % (24.0-44.0); MEAN CORPUSCULAR HEMOGLOBIN 26.6 pg (27.0-33.0); MEAN CORPUSCULAR HGB CONC 31.8 g/dl (32.0-36.5); MEAN CORPUSCULAR VOLUME 83.8 fl (80.0-96.0); MONO # 0.6 10^3/uL (0.0-0.8); NEUTROPHILS # 4.6 10^3/uL (1.5-8.5); NEUTROPHILS % 60.7 % (36.0-66.0); PLATELET COUNT, AUTOMATED 340 10^3/uL (150-450); RED BLOOD COUNT 4.58 10^6/uL (4.00-5.40); WHITE BLOOD COUNT 7.5 10^3/uL (4.0-10.0)
[2024-06-23 17:28] LABS: ALBUMIN 3.5 G/DL (3.2-5.2); ALKALINE PHOSPHATASE 71 U/L (35-104); ALT/SGPT 40 U/L (7.0-40); AST/SGOT 65 U/L (<34); BILIRUBIN,TOTAL 0.4 MG/DL (0.3-1.2); BLOOD UREA NITROGEN 8 MG/DL (9-23); CALCIUM LEVEL 9.3 MG/DL (8.5-10.1); CARBON DIOXIDE LEVEL 25 MMOL/L (20-31); CHLORIDE LEVEL 108 MMOL/L (98-107); CHOLESTEROL LEVEL 120 MG/DL (<200); CHOLESTEROL RISK RATIO 3.49 (<5); GLOMERULAR FILTRATION RATE > 60.0 (>60); GLUCOSE, FASTING 104 MG/DL (60-100); HDL CHOLESTEROL 34.3 MG/DL (>40); IRON (FE) 120 UG/DL (50-170); LDL CHOLESTEROL 66.3 MG/DL (<100); NON-HDL-C 85.7 MG/DL; PERCENT SATURATION 44.4 % (13.2-45.0); POTASSIUM SERUM 4.6 MMOL/L (3.5-5.1); SODIUM LEVEL 143 MMOL/L (136-145); TOTAL IRON BINDING CAPACITY 270 UG/DL (250-425); TOTAL PROTEIN 7.1 G/DL (5.7-8.2); TRIGLYCERIDES LEVEL 97 MG/DL (<150)
[2024-06-23 17:29] LABS: FREE T4 0.87 NG/DL (0.89-1.76)
[2024-06-23 17:34] LABS: FERRITIN 69.3 NG/ML (7.3-270.7); THYROID STIMULATING HORMONE 12.603 uIU/ML (0.55-4.78)
[2024-06-23 17:35] LABS: VITAMIN B12 LEVEL 401 PG/ML (211-911)
[2024-06-23 18:00] LABS: HEMOGLOBIN A1c 12.1 % (4.0-6.0)
[2024-06-29 06:40] LABS: HEMATOCRIT 38.4 % (36.0-47.0)
== END ==
LOC: M WUC 12:19
PROVIDERS: ATTEND Student in an Organized Health Care Education/Training Program
DX: E11.9 Type 2 diabetes mellitus without complications (principal); Z86.2 Personal history of diseases of the blood and blood-forming organs and certain disorders involving the immune mechanism; I25.2 Old myocardial infarction; I10 Essential (primary) hypertension

== ENCOUNTER → 2025-05-05 | Outpatient (CLI) | payer MEDICAID, OTHER ==
[~2025-05-05] MED LIST changes: -LABE100T6 PO; +LABE100T91 PO
[2025-05-05 13:56] LABS: PLATELET COUNT, AUTOMATED 312 10^3/uL (150-450)
[2025-05-05 14:18] LABS: ESTIMATED AVERAGE GLUCOSE 318.0 MG/DL (60-110)
[2025-05-05 14:19] LABS: CREATININE, URINE 111.4 MG/DL; MALB URINE SIEMENS 23.0 MG/L; MAU/CREAT RATIO 20.6 MCG/MG (0.0-30.0)
[2025-05-05 14:20] LABS: ALT/SGPT 16 U/L (7.0-40); AST/SGOT 15 U/L (<34); CALCIUM LEVEL 9.7 MG/DL (8.5-10.1); CARBON DIOXIDE LEVEL 26 MMOL/L (20-31); CHLORIDE LEVEL 101 MMOL/L (98-107); CHOLESTEROL LEVEL 202 MG/DL (<200); CHOLESTEROL RISK RATIO 5.72 (<5); CREATININE FOR GFR 0.60 MG/DL (0.55-1.30); GLOMERULAR FILTRATION RATE > 90.0 (>60); LDL CHOLESTEROL 89.7 MG/DL (<100); NON-HDL-C 166.7 MG/DL; POTASSIUM SERUM 4.3 MMOL/L (3.5-5.1); SODIUM LEVEL 135 MMOL/L (136-145); TRIGLYCERIDES LEVEL 385 MG/DL (<150)
[2025-05-05 14:22] LABS: FREE T4 1.19 NG/DL (0.89-1.76)
== END ==
LOC: M WUC 11:36
PROVIDERS: ATTEND Family Medicine
DX: E11.9 Type 2 diabetes mellitus without complications (principal); I10 Essential (primary) hypertension; Z86.2 Personal history of diseases of the blood and blood-forming organs and certain disorders involving the immune mechanism; E03.9 Hypothyroidism, unspecified

== ENCOUNTER → 2025-05-05 | Outpatient (REF) | payer OTHER, MEDICAID | LOC: M SFHCPLAZ 10:16 | PROVIDERS: ATTEND Family Medicine | DX: Z53.9 Procedure and treatment not carried out, unspecified reason (principal) ==